=== PATIENT | female | born 1935 | race Caucasian/White ===

== ENCOUNTER → 2022-08-08 | Outpatient (CLI) | payer MEDICARE ==
--- NOTE | 2022-08-08 18:16 | DIREP ---
PROCEDURE:CT CHEST W/O COMPARISON:None. INDICATIONS:RT INFRAHILAR MASS VS HIATAL HERNIA, ABN CXR TECHNIQUE:Helical sections through the chest were performed from the lung apices through the diaphragms without IV contrast. Sagittal and coronal reconstructions are obtained from source images. FINDINGS: LUNGS:No tracheal stenosis. No acute pulmonary infiltrates. PLEURA:No mass and no effusion. CARDIAC:Heart size within normal limits. MEDIASTINUM:Large hiatal hernia with essentially all of the stomach in the mediastinum. Aberrant right subclavian artery origin. LUANNE:No mass. AORTA:Scattered calcified plaque. CHEST WALL:No adenopathy. LIMITED ABDOMEN:Calcified plaque in the aorta. Adrenals are within normal limits. Mild atrophy of the kidneys. Diverticulosis of the descending colon. BONES:Moderate anterior wedge fracture at T9. Multilevel degenerative disc disease. Severe arthropathy of the left shoulder. OTHER:Negative. CONCLUSION: 1. Large hiatal hernia. 2. Probable old T9 moderate anterior wedge fracture. Dictated by: Erich Mueller M.D. on 08/08/2022 at 06:11 PM
== END | disposition home or self-care (01) ==
LOC: RAD 12:38
PROVIDERS: ATTEND Nurse Practitioner Family
DX: K44.9 Diaphragmatic hernia without obstruction or gangrene (principal); M48.44XA Fatigue fracture of vertebra, thoracic region, initial encounter for fracture; M12.812 Other specific arthropathies, not elsewhere classified, left shoulder; N26.1 Atrophy of kidney (terminal); R91.8 Other nonspecific abnormal finding of lung field; I70.0 Atherosclerosis of aorta
CPT/HCPCS: 71250

== ENCOUNTER → 2022-11-07 | Outpatient (CLI) | payer MEDICARE ==
[2022-11-07] MEDS: LEXISCAN IV ONE (09:38)
--- NOTE | 2022-11-07 11:27 | PCM.ECHO ---
APPROVED REPORT EXAM: Comprehensive 2D, Doppler, and color-flow Echocardiogram. Patient Location: OUT-PATIENT Indications Dyspnea Hypertension/HDD Chest Pain 2D Dimensions LVOT Diameter 2.13 (1.8-2.4cm) LVEF(%) 63.09 (>50%) M-Mode Dimensions RVDd 0.65 (2.1-3.2cm) Left Atrium(MM) 3.25 (2.5-4.0cm) IVSd 1.20 (0.7-1.1cm) Aortic Root 2.80 (2.2-3.7cm) LVDd 5.00 (4.0-5.6cm) Aortic Cusp Exc 1.65 (1.5-2.0cm) PWd 0.65 (0.7-1.1cm) MV EPSS 0.64 (<0.5cm) IVSs 1.40 cm FS (%) 31.80 % LVDs 3.40 (2.0-3.8cm) ESV(Teich) 48.38 ml PWs 1.20 cm LVEF(%) 59.64 (>50%) Volumes Biplane 2D LV Volumes Biplane 2D LA Volumes LVEDv A4C 84.68 mL LA ESV Index LVESv A4C 31.25 mL Aortic Valve AoV Peak Damien. 1.35 m/s AoV VTI 30.45 cm AO Peak GR. 7.80 mmHg AO Mean GR. 4.75 mmHg LVOT VTI 33.81 cm LVOT Peak Damien. 1.29 m/s PRITESH(VTI)/BSA 3.95 cm2/m2 PRITESH (VTI) 3.95 cm2 AI P 1/2 Time 590.40 ms Mitral Valve MV E Velocity 1.10m/s MR Peak Gr. 4.80mmHg MV A Velocity 1.20m/s TDI Lateral E' P. V 0.08m/s Medial E' P. V 0.14m/s Pulmonary Valve PV Peak Velocity 0.95m/s PV Peak Grad. 3.75mmHg RVOT VTI 21.83cm Tricuspid Valve TR P. Velocity 1.30m/s RAP ESTIMATE 10.00mmHg TR Peak Gr. 7.26mmHg RVSP 17.26mmHg LEFT VENTRICLE The left ventricle is normal size. The left ventricular systolic function is normal. The left ventricular ejection fraction is within the normal range. There is normal left ventricular wall thickness. There is normal LV segmental wall motion. Pseudonormalized E/A reversal consistent with Stage 2 Diastolic Dysfunction. There is no ventricular septal defect visualized. No left ventricle thrombus noted on this study. LVEF is 65-70%. RIGHT VENTRICLE The right ventricle is normal size. The right ventricular systolic function is normal. There is normal right ventricular wall thickness. ATRIA The left atrium size is normal. The right atrium size is normal. The interatrial septum is intact with no evidence for an atrial septal defect. AORTIC VALVE The aortic valve is normal in structure. There is no aortic valvular stenosis. Severe aortic regurgitation. There is no aortic valvular vegetation. MITRAL VALVE The mitral valve is normal in structure. There is no mitral valve stenosis. Mild to moderate mitral regurgitation. There is no evidence of mitral valve vegetations. TRICUSPID VALVE The tricuspid valve is normal in structure. There is no tricuspid valve stenosis. Mild to moderate tricuspid regurgitation. There is no tricuspid valve vegetations. PULMONIC VALVE Pulmonic valve is not well visualized. There is no pulmonic valvular stenosis. There is no pulmonic valvular regurgitation. GREAT VESSELS The aortic root is normal in size. Pulmonary artery is not well visualized. Aortic arch is not well visualized. The IVC is normal in size and collapses >50% with inspiration. PERICARDIUM There is no pericardial effusion. There is no pleural effusion. Other Information Study Quality: Fair Further Testing Further Testing : For further evaluation RAAD is recommended. <Conclusion> The left ventricular systolic function is normal. LVEF is 65-70%. Severe aortic regurgitation. Mild to moderate mitral regurgitation. Mild to moderate tricuspid regurgitation. Electronically signed by : JARON GODFREY. 11/07/2022 11:26:54
--- NOTE | 2022-11-07 23:42 | STRESS ---
DATE OF SERVICE: 11/07/2022 DICTATOR NAME: JARON GIPSONYOLANDABelen CARDIAC STRESS TEST INDICATION: Chest pain. FINDINGS: Baseline EKG shows normal sinus rhythm with poor R-wave progression, likely normal variant. Stress EKG shows normal sinus rhythm, unchanged from baseline. At the end of recovery, EKG shows normal sinus rhythm, unchanged from baseline. Baseline heart rate is 83 beats per minute and ava to 88 beats per minute during stress. At the end of recovery, the heart rate was 90 beats per minute. Baseline blood pressure is 130/62 and remained the same during stress. At the end of recovery, the blood pressure was 144/55. Blood pressure and heart rate were appropriate for stress. There were no significant symptoms noted during stress. There were no arrhythmias noted during stress. EKG portion of stress test is negative for myocardial ischemia. Nuclear images were obtained with a rest dose of 11.05 mCi technetium 99 sestamibi and stress dose of 32 mCi technetium 99 sestamibi. Nuclear images reveal homogeneous tracer distribution across all wall segments as visualized in both rest and stress images, with no evidence of myocardial ischemia or infarction. Left ventricular ejection fraction is 85%. EDV is 29 mL, ESV is 4 mL. The left ventricle is normal in size. Gated motion images shows normal wall motion across all segments of the left ventricle. TID is 1.4. There is no evidence of diaphragmatic attenuation artifact. IMPRESSION: * Normal myocardial perfusion imaging with no evidence of myocardial ischemia or infarction. * Left ventricular ejection fraction of 85%. * This is a negative study. Arely MAGAÑA D.O. DR: FAUSTO TID: [id number] RECEIPT: [id number]
== END | disposition home or self-care (01) ==
LOC: RAD 08:58
PROVIDERS: ATTEND Internal Medicine Interventional Cardiology
DX: I08.3 Combined rheumatic disorders of mitral, aortic and tricuspid valves (principal); I10 Essential (primary) hypertension; R07.9 Chest pain, unspecified; R06.02 Shortness of breath
CPT/HCPCS: 78452; 93306; 93017; J2785; A9500